=== PATIENT | male | born 1995 | race Caucasian/White ===

== ENCOUNTER 2021-04-05 14:07 | Emergency (ER) | payer SELFPAY ==
[2021-04-05 15:56] VITALS: BP 98/59
--- NOTE | 2021-04-05 16:01 | XRay Report ---
Lumbar spine-3 views INDICATION: FALL. COMPARISON: None. IMPRESSION: Mild levoscoliosis centered at L3 with normal AP alignment. No significant discogenic D LETICIA or facet arthropathy. No acute osseous or soft tissue abnormality. Signer Name: Placido English MD Signed: 04/05/2021 3:57 PM Workstation Name: [id number]
[2021-04-05] MEDS ORDERED: IBUPROFEN 800 MG TAB PO ONE (20:37)
--- NOTE | 2021-04-05 20:40 | Emergency Department Report ---
ED Fall HPI - General Chief Complaint: Fall Stated Complaint: FALL Time Seen by Provider: 04/05/21 20:33 Source: patient Mode of arrival: Ambulatory Limitations: Language Barrier - History of Present Illness Initial Comments: REPORTS FALLLING OFF ONE STORY ROOFTOP. C/O LOWER BACK PAIN. -LOC. DENIES NECK/ABD PAIN. -: Sudden, hour(s) Fall From: standing When Fall Occurred: unsure Fall Witnessed: no Place Fall Occurred: work Loss of Consciousness: none Prolonged Down Time?: no Location: back Severity scale (0 -10): 2 Quality: dull Context: tripped/slipped Associated Symptoms: denies - Related Data Allergies Allergy/AdvReac Type Severity Reaction Status Date / Time No Known Allergies Allergy Verified 04/05/21 14:49 ED Review of Systems ROS: Stated complaint: FALL Other details as noted in HPI Comment: Unobtainable due to pts medical conditions ED Past Medical Hx - Past Medical History Previous Medical History?: No Hx Hypertension: No Hx CVA: No ED Physical Exam - General Limitations: Language Barrier General appearance: alert, in no apparent distress - Head Head exam: Present: atraumatic, normocephalic - Eye Eye exam: Present: normal appearance - ENT ENT exam: Present: mucous membranes moist - Neck Neck exam: Present: normal inspection - Respiratory Respiratory exam: Present: normal lung sounds bilaterally. Absent: respiratory distress - Cardiovascular Cardiovascular Exam: Present: regular rate, normal rhythm. Absent: systolic murmur, diastolic murmur, rubs, gallop - GI/Abdominal GI/Abdominal exam: Present: soft, normal bowel sounds - Rectal Rectal exam: Present: deferred - Extremities Exam Extremities exam: Present: normal inspection - Back Exam Back exam: Present: tenderness, muscle spasm - Neurological Exam Neurological exam: Present: alert, oriented X3 - Psychiatric Psychiatric exam: Present: normal affect, normal mood - Skin Skin exam: Present: warm, dry, intact, normal color. Absent: rash ED Course Vital Signs 04/05/21 04/05/21 14:48 15:54 Temperature 98.1 F 97.9 F Pulse Rate 62 50 L Respiratory 14 16 Rate Blood Pressure 98/59 Blood Pressure 104/61 [Left] O2 Sat by Pulse 100 100 Oximetry Critical care attestation.: If time is entered above; I have spent that time in minutes in the direct care of this critically ill patient, excluding procedure time. ED Disposition Clinical Impression: Back pain, Fall Disposition: HOME / SELF CARE / HOMELESS Is pt being admited?: No Does the pt Need Aspirin: No Condition: Stable Instructions: Back Injury Prevention, Radicular Pain Referrals: PRIMARY CARE,MD [Primary Care Provider] - 3-5 Days
== END 2021-04-05 21:00 | disposition home or self-care (01) ==
LOC: ED 14:07
DX: M54.9 Dorsalgia, unspecified (principal); W19.XXXA Unspecified fall, initial encounter; Y93.89 Activity, other specified; Y92.89 Other specified places as the place of occurrence of the external cause; Y99.8 Other external cause status
CPT/HCPCS: 72100; 99283